=== PATIENT | male | born 1970 | race Caucasian/White ===

== ENCOUNTER 2016-11-09 11:26 | Emergency (ER) | payer SELFPAY ==
[2016-11-09] MEDS ORDERED: MORPHINE IV ONE (12:01)
[2016-11-09] MEDS ORDERED: ZOFRAN IV ONE (12:01)
[2016-11-09] MEDS ORDERED: NACL 0.9% 500 ML 500 ML IV ONE (12:01)
[2016-11-09] MEDS ORDERED: NITRO-BID 2% TP ONE (12:01)
[2016-11-09] MEDS ORDERED: NITROSTAT SL ONE (12:01)
[2016-11-09 12:02] LABS: Basophils % (Auto) 0.4 % (0.0-1.8); Hematocrit 44.2 % (35.5-45.6); Hemoglobin 14.6 gm/dl (11.8-15.2); Mean Corpuscular HGB Conc 33 % (32-34); Mean Corpuscular Hemoglobin 30 pg (28-32); Mean Corpuscular Volume 92 fl (84-94); Platelet Count 317 K/mm3 (140-440); Red Blood Count 4.82 M/mm3 (3.65-5.03); Red Cell Distribution Width 14.3 % (13.2-15.2); White Blood Count 11.7 K/mm3 (4.5-11.0)
--- NOTE | 2016-11-09 12:04 | Emergency Department Report ---
ED Chest Pain HPI - General Chief Complaint: Chest Pain Stated Complaint: CHEST PAIN, TOOTH ACHE Time Seen by Provider: 11/09/16 11:41 Source: patient, EMS Mode of arrival: Stretcher Limitations: No Limitations - History of Present Illness MD Complaint: chest pain -: Gradual Onset: during rest Pain Location: substernal, left chest Pain Radiation: none Severity: moderate Quality: tightness, aching, pressure Consistency: constant Improves With: nothing Worsens With: nothing re: nausea Other Symptoms: denies: cough, fever, syncope, rash, acid taste in mouth, palpitations Treatments Prior to Arrival: aspirin Aspirin use within the Past 7 Days: (1) Yes - Related Data On Oral Contraceptives: No Previous Rx's Medication Instructions Recorded Last Taken Type Diclofenac Potassium 50 mg PO BID #20 tablet 11/09/16 Unknown Rx HYDROcodone/APAP 10-325 [[place] 1 each PO BID #15 tablet 11/09/16 Unknown Rx 10/325] Allergies Allergy/AdvReac Type Severity Reaction Status Date / Time No Known Allergies Allergy Unverified 11/09/16 11:32 MEGHANN score - Meghann Score Age > 65: (0) No Aspirin use within the Past 7 Days: (1) Yes 3 or more CAD Risk Factors: (0) No 2 or more Angina events in past 24 hrs: (0) No Known CAD with more than 50% Stenosis: (0) No Elevated Cardiac Markers: (0) No ST Deviation Greater than 0.5mm: (0) No MEGHANN Score: 1 ED Review of Systems ROS: Stated complaint: CHEST PAIN, TOOTH ACHE Other details as noted in HPI Comment: All other systems reviewed and negative ED Past Medical Hx - Past Medical History Previous Medical History?: No - Surgical History Past Surgical History?: Yes Hx Appendectomy: Yes - Social History Smoking Status: Current Every Day Smoker Substance Use Type: Alcohol - Medications Home Medications: Home Medications Medication Instructions Recorded Confirmed Last Taken Type Diclofenac Potassium 50 mg PO BID #20 tablet 11/09/16 Unknown Rx HYDROcodone/APAP 10-325 [[place] 1 each PO BID #15 tablet 11/09/16 Unknown Rx 10/325] ED Physical Exam - General Limitations: No Limitations General appearance: alert, in no apparent distress - Head Head exam: Present: atraumatic, normocephalic - Eye Eye exam: Present: normal appearance - ENT ENT exam: Present: mucous membranes moist, other (there in dental decay and gum inflamation in left lower mouth with tenderness in left TMJ) - Neck Neck exam: Present: normal inspection - Respiratory Respiratory exam: Present: normal lung sounds bilaterally. Absent: respiratory distress - Cardiovascular Cardiovascular Exam: Present: regular rate, normal rhythm. Absent: systolic murmur, diastolic murmur, rubs, gallop - GI/Abdominal GI/Abdominal exam: Present: soft, normal bowel sounds - Rectal Rectal exam: Present: deferred - Extremities Exam Extremities exam: Present: normal inspection - Back Exam Back exam: Present: normal inspection - Neurological Exam Neurological exam: Present: alert, oriented X3 - Psychiatric Psychiatric exam: Present: normal affect, normal mood - Skin Skin exam: Present: warm, dry, intact, normal color. Absent: rash ED Course Vital Signs 11/09/16 11/09/16 11/09/16 11:10 11:27 12:20 Temperature 97.6 F Pulse Rate 73 69 Respiratory 12 26 H Rate Blood Pressure 126/81 126/81 O2 Sat by Pulse 84 100 100 Oximetry 11/09/16 11/09/16 11/09/16 12:36 12:37 12:41 Temperature Pulse Rate 73 Respiratory 18 18 Rate Blood Pressure 126/81 O2 Sat by Pulse 100 Oximetry 11/09/16 11/09/16 11/09/16 13:00 13:06 16:05 Temperature Pulse Rate 65 Respiratory 17 18 18 Rate Blood Pressure 130/79 O2 Sat by Pulse 99 Oximetry ED Medical Decision Making - Lab Data Result diagrams: 11/09/16 11:36 11/09/16 11:36 - EKG Data EKG shows normal: sinus rhythm - EKG Data When compared to previous EKG there are: no significant change Interpretation: no acute changes - Radiology Data Radiology results: report reviewed, image reviewed - Medical Decision Making patient been seen by cardiology and ruled out for ACS at this time , echo done which was normal too, cxr neg, labs neg laceration of chin was repaired with dermabond and he will need to see OMFS or ENT for possible surgery of the mandible fracture, he is able to eat and drink at this time. Critical care attestation.: If time is entered above; I have spent that time in minutes in the direct care of this critically ill patient, excluding procedure time. ED Disposition Clinical Impression: Syncope, Chest pain, Fracture of jaw Disposition: DISCHARGED TO HOME OR SELFCARE Is pt being admited?: No Does the pt Need Aspirin: No Condition: Good Instructions: Syncope (ED), Chest Pain (ED) Prescriptions: Diclofenac Potassium 50 mg PO BID #20 tablet HYDROcodone/APAP 10-325 [[place] 10/325] 1 each PO BID #15 tablet Referrals: PRIMARY MD YVAN [Primary Care Provider] - 3-5 Days MYLENE CAREY MD [Staff Physician] - 3-5 Days Time of Disposition: 17:12
[2016-11-09 12:15] LABS: Anion Gap 19 mmol/L; Blood Urea Nitrogen 12 mg/dL (9-20); Calcium 9.2 mg/dL (8.4-10.2); Carbon Dioxide 23 mmol/L (22-30); Glucose 123 mg/dL (75-100); Potassium 4.4 mmol/L (3.6-5.0); Sodium 137 mmol/L (137-145)
--- NOTE | 2016-11-09 12:19 | Cat Scan Report ---
CT HEAD WITHOUT CONTRAST INDICATION: Fall. COMPARISON: None similar. FINDINGS: Noncontrast head CT demonstrates 1.6 x 0.8 cm peripheral right parietal hypodensity, axial series 2, image 36 and also 3.7 x 1.3 cm similar hypodensity in the right occipital lobe, axial image 27, suggesting old infarcts. Otherwise unremarkable ventricles and sulci. No acute or recent infarct, hemorrhage, mass effect or midline shift. No abnormal extra axial fluid collections. Normal posterior fossa with preserved basilar cisterns. Mild bilateral ethmoid sinusitis. Minimal right sphenoid and right maxillary sinus mucosal thickening. Hypoplastic frontal sinuses with minimal mucosal thickening on the left possible. Clear remainder imaged paranasal sinuses and mastoid air cells. Comminuted fracture dislocation of the left mandibular condyle/TMJ suspected partially imaged. Intact remainder calvarium. Normal skull. Few radiopaque dental fillings. Mild cervical spondylosis. 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 Please correlate. I phoned the above results to Dr. Cain in the ER, 12:10 PM, 11/09/2016. Thank you for the opportunity to participate in this patient's care.
--- NOTE | 2016-11-09 12:34 | XRay Report ---
LEFT SHOULDER RADIOGRAPHS INDICATION: Fall. COMPARISON: None similar. FINDINGS: Frontal and Y views of the left shoulder, 3 projections demonstrate normal humeral head contour, well positioned against the glenoid. Intact AC joint with degenerative spurring. Preserved scapular contour. Normal visualized soft tissues, left ribs and lung. CONCLUSION: No acute left shoulder radiographic abnormality with left AC joint arthropathy, as described. Thank you for the opportunity to participate in this patient's care.
--- NOTE | 2016-11-09 14:00 | Consultation ---
History of Present Illness Consult date: 11/09/16 Requesting physician: PATRIC MOREL Consult reason: chest pain, syncope History of present illness: Pt is a 45 YO male with a past medical history significant for tobacco use (1/2 PPD) and ETOH use (6 beers per day). He is previously unknown to our practice. He presented with c/o syncope. He reports that today while standing upright, he developed palpitations, then dizziness, then "passed out". He reports a similar episode several days ago with near-syncope but no loss of consciousness. He states that he briefly had chest pain prior to the syncopal episode today. He describes his chest pain as a nonexertional, nonradiating, left-sided, aching pain. He denies any SOB, n/v, diaphoresis, orthopnea, or PND. He denies any precipitating, aggravating, or alleviating factors. Past History Past Surgical History: No surgical history Social history: smoking, alcohol abuse Medications and Allergies Allergies Allergy/AdvReac Type Severity Reaction Status Date / Time No Known Allergies Allergy Unverified 11/09/16 11:32 Home Medications Medication Instructions Recorded Confirmed Last Taken Type No Known Home Medications [No 11/09/16 11/09/16 Unknown History Reported Home Medications] Review of Systems Constitutional: no weight loss, no weight gain, no fever, no chills, no sweats Ears, nose, mouth and throat: no ear pain, no nasal congestion, no sinus pressure, no sinus pain Cardiovascular: chest pain, palpitations, syncope, lightheadedness, high blood pressure, no orthopnea, no rapid/irregular heart beat, no edema, no shortness of breath, no dyspnea on exertion, no paroxysmal nocturnal dyspnea, no leg edema , no decreased exercise tolerance Respiratory: no cough, no shortness of breath, no dyspnea on exertion, no congestion, no wheezing, no pain Gastrointestinal: no abdominal pain, no nausea, no vomiting, no diarrhea, no constipation, no change in bowel habits Genitourinary Male: no dysuria, no hematuria, no flank pain, no discharge, no urinary frequency, no urinary hesitancy Musculoskeletal: no neck stiffness, no neck pain, no shooting arm pain, no arm numbness/tingling, no low back pain, no shooting leg pain, no leg numbness/ tingling, no redness of joints Integumentary: no rash, no pruritis, no redness, no sores, no wounds Neurological: syncope, no paralysis, no weakness, no parathesias, no numbness, no tingling, no seizures, no tremors, no ataxia, no lack of coordination, no headaches, no change in speech, no change in mentation, no confusion Psychiatric: no anxiety Endocrine: no cold intolerance, no heat intolerance Hematologic/Lymphatic: no easy bruising, no easy bleeding, no lymphadenopathy Allergic/Immunologic: no urticaria, no wheezing, no persistent infections Physical Examination Vital Signs Temp Pulse Resp BP Pulse Ox 97.6 F 73 12 126/81 100 11/09/16 11:27 11/09/16 11:27 11/09/16 11:27 11/09/16 11:27 11/09/16 11:27 General appearance: no acute distress HEENT: Positive: PERRL, Normocephaly, Mucus Membranes Moist, Other (jaw fracture ) Neck: Positive: neck supple, trachea midline Cardiac: Positive: Reg Rate and Rhythm, S1/S2 Lungs: Positive: Normal Exam, clear to auscultation, Normal Breath Sounds Neuro: Positive: Grossly Intact, Cranial Nerve 2-12 Intact Abdomen: Positive: Unremarkable, Soft, Active Bowel Sounds. Negative: Tender Skin: Positive: Clear. Negative: Rash, Wound Musculoskeletal: No Fluid Collection, No Pain, Normal Range of Motion Extremities: Present: normal, upper extr. pulses, lower extr. pulses. Absent: edema Results 11/09/16 11:36 11/09/16 11:36 CBC 11/09/16 Range/Units 11:36 WBC 11.7 H (4.5-11.0) K/mm3 RBC 4.82 (3.65-5.03) M/mm3 Hgb 14.6 (11.8-15.2) gm/dl Hct 44.2 (35.5-45.6) % Plt Count 317 (140-440) K/mm3 Lymph # 3.4 (1.2-5.4) K/mm3 [place] # 0.7 (0.0-0.8) K/mm3 Eos # 0.5 H (0.0-0.4) K/mm3 Baso # 0.1 (0.0-0.1) K/mm3 Comprehensive Metabolic Panel 11/09/16 Range/Units 11:36 Sodium 137 (137-145) mmol/L Potassium 4.4 (3.6-5.0) mmol/L Chloride 99.0 (98-107) mmol/L Carbon Dioxide 23 (22-30) mmol/L BUN 12 (9-20) mg/dL Creatinine 0.8 (0.8-1.5) mg/dL Glucose 123 H (75-100) mg/dL Calcium 9.2 (8.4-10.2) mg/dL - Imaging and Cardiology Echo: pending EKG: report reviewed, image reviewed EKG interpretations - Telemetry EKG Rhythm: Sinus Rhythm - EKG Sinus rhythms and dysrhythmias: sinus rhythm Repolarization changes or abnormalities: nonspecific abnormality, ST segment, and/or T wave Assessment and Plan Assessment: Syncope Chest pain, atypical - currently resolved; ECG with NAF; troponin negative for AMI x 1 set. Palpitations Acute left TMJ fracture - 2/2 syncopal episode. Tobacco use / ETOH use - cessation encouraged. Plan: Cont to trend Joseph. Obtain echo. Pending Joseph remain negative for AMI and echo reveals no gross abnormalities, pt may discharge home from cardiology standpoint. Recommend follow up in our office with Leyla Martinez NP, within 1-2 weeks of hospital discharge ([phone]). Assessment and plan reviewed with pt at bedside. The patient has been seen in conjunction with Dr. MOY Ba who agrees with the assessment and plan of care.
[2016-11-09 14:10] VITALS: BP 130/79
--- NOTE | 2016-11-09 14:28 | XRay Report ---
CHEST ONE VIEW INDICATION: Chest pain. COMPARISON: None similar. FINDINGS: Portable, single, frontal chest radiograph demonstrates normal cardiomediastinal silhouette. Clear lungs. Intact bones. Extrinsic EKG leads. CONCLUSION: No acute disease in the chest. Thank you for the opportunity to participate in this patient's care.
[2016-11-09] MEDS ORDERED: TORADOL ONE (15:53)
[2016-11-09] MEDS ORDERED: TORADOL IV ONE (16:03)
== END 2016-11-09 17:14 | disposition home or self-care (01) ==
LOC: ED 11:26
DX: S02.609A Fracture of mandible, unspecified, initial encounter for closed fracture (principal); S01.81XA Laceration without foreign body of other part of head, initial encounter; R07.2 Precordial pain; R55 Syncope and collapse; F17.200 Nicotine dependence, unspecified, uncomplicated; Z90.49 Acquired absence of other specified parts of digestive tract; X58.XXXA Exposure to other specified factors, initial encounter; Y93.89 Activity, other specified; Y99.8 Other external cause status; Y92.89 Other specified places as the place of occurrence of the external cause
CPT/HCPCS: 12011; 36415; 70450; 71010; 73030; 80048; 84484; 85025; 93005; 93010; 93306; 96361; 96374; 96375; 99285; J1885; J2270; J2405; J7040